=== PATIENT | female | born 1980 | race Caucasian/White ===

== ENCOUNTER → 2019-02-07 | Outpatient (CLI) | payer OTHER ==
[~2019-02-07] VITALS: Ht 172.7 cm; Wt 90.7 kg
[2019-02-07] VITALS (9 sets, daily range): BP systolic 111–135; BP diastolic 62–85
[~2019-02-07] MED LIST: DEPO-PROVE150 MG/11 IM
== END | disposition home or self-care (01) ==
LOC: CAT 09:01
DX: M71.38 Other bursal cyst, other site (principal); M43.17 Spondylolisthesis, lumbosacral region; M47.816 Spondylosis without myelopathy or radiculopathy, lumbar region